=== PATIENT | female | born 1945 | race Caucasian/White ===

== ENCOUNTER 2023-11-21 20:58 | Emergency (ER) | payer OTHER, SELFPAY ==
[2023-11-21 23:08] VITALS: BP 123/85
--- NOTE | 2023-11-21 23:40 | ED.GENMED ---
History of Present Illness
General
Chief Complaint: Musculo-Skeletal Complaint
Source: patient
Exam Limitations: none
Time Seen by Provider: 11/21/23 23:05
Travel History
Have you had any contact with someone who has COVID-19?: No
Do you have any symptoms of coronavirus? Fever > 100 degrees, chills, cough, shortness of breath, sore throat, loss of taste or smell, muscle aches, or headache?: No
History of Present Illness
History of Present Illness:
This is a 78 year old female that comes in with c/o right hip/pelvic pain. States that she was on a ladder at work and the she was on the bottom step. States that she fell and landed on the right hip area. States that she has pain in the hip and
down into the groin. States that she did not hit her head or have any LOC. Deneis any fever, chills, chest pain, SOB, abd pain, nausea, vomiting, diarrhea, headache, dizziness, urinary burning.
Past History
Past History
ED Past Medical History: GERD, NIDDM and Other (Back pain, Hiatal hernia, Ulcers Anemia, )
ED Past Surgical History: Appendectomy and Orthopedic (Back surgery, Spinal stimulator)
Social History
Tobacco: Former smoker
Alcohol: None
Personal:
Living: with family
Employment: Employed
Review of Systems
Review of Systems
All Other Systems: ROS reviewed and negative except as documented in HPI and ROS
Constitutional: Reports no symptoms; Denies fever or chills
EENT: Reports no symptoms
Respiratory: Reports no symptoms; Denies cough or trouble breathing
Cardiac: Denies no symptoms or chest pain
ABD/GI: Reports no symptoms; Denies abdominal pain, nausea, vomiting or diarrhea
: Reports no symptoms; Denies dysuria, frequency or urgency
Musculoskeletal: Reports joint pain (Right hip and groin pain)
Skin: Reports no symptoms
Neurological: Reports no symptoms; Denies dizzy or headache
Psychiatric: Reports no symptoms
Phy Exam
General Physical Exam
General Presentation: well appearing
General age: appears stated age
General Skin: warm and dry
General Habitus: elderly
General Mental: alert
General Hydration: dry mucous membranes
ENT Exam
ENT Exam: TM's normal, pharynx normal and neck supple
Eye Exam
Eye Exam: EOMI
Cardiovascular Exam
Cardiovascular Exam: regular rate/rhythm, no edema and normal peripheral pulses
Pulmonary Exam
Pulmonary Exam: lungs clear, no respiratory distress, no rales, chest non tender, no crackles, no rhonchi, no wheezing and no cough
Gastrointestinal Exam
Gastrointestinal Exam: normal bowel sounds, non tender, soft, no organomegaly, no pulsatile mass and non distended
Musculoskeletal Exam
Musculoskeletal Exam: no edema and other (Right groin tenderness with palpation. Slight discomfort with inversion and evertion. )
Skin Exam
Skin Exam: normal color, warm/dry, no rash and no petechia
Psychiatric Exam
Psychiatric Exam: normal mood/affect
Course
Orders/Labs/Results
Orders:
Orders
11/21/23 21:49
Hip, Right 2-3 Views [CR Hip - RT w/wo Pel 2-3 Vw*] Urgent
Comment:
Reason For Exam: fall
Include a pelvis x-ray?: Yes
11/22/23 00:30
CT Pelvis W/o Iv Contrast Urgent
Reason For Exam: Fall, right groin pain
Vital Signs
Initial and Last Documented VS:
Initial Vital Signs
Temp Pulse Resp Pulse Ox
98.7 F 90 20 96
11/21/23 21:06 11/21/23 21:06 11/21/23 21:06 11/21/23 21:06
Last Documented Vital Signs
Temp Pulse Resp BP Pulse Ox
98.7 F 90 20 123/85 96
11/21/23 21:06 11/21/23 21:06 11/21/23 21:06 11/21/23 23:08 11/21/23 21:06
MDM/Problems Addressed
Differential Diagnosis Includes:
Pelvic fracture, Hip fracture, Contusion
MDM/Problems Addressed:
This is a 78 year old female that comes in with c/o right hip/pelvic pain. States that she fell of the bottom step on a ladder and landed on the right hip area. States that she has pain in the hip and down into the grown.
Will get CT of pelvis to r/o pelvic fractures. Hip X-ray appears negative.
Back into see patient. Explained that she has right sided pelvic fractures. Patient states that she would like to go home. Patient had taken Hydrocodone and 3 Ibuprofen before coming. States that she just feels sore in the groin area. Patient was
able to get OOB and walk to the bathroom with the use of a walker. Will discharge patient home with a prescription for Hydrocodone. Patient to follow up with the family doctor and the content production specialist. Patient to return with any concerns.
Chronic conditions affecting care:
NA
Acute Exacerbation and/or Progression of Chronic Illness:
NA
*Radiology
Radiology exam reviewed: radiology read reviewed (CT night hawk- Comminuted fracture of the right superior and inferior pubic rami. Prepubic soft tissue swelling and likely small blood products, extending near the space of Retzius. )
*Pulse Oximetry
Patient hypoxic: no
*EKG
Interpreted by ED Provider?: NA
Rate: EKG- N/A
*Power Machine Operator Interpretation
Rate: Power Machine Operator- N/A
*Critical Care Note
Total Time (30-74mins, 75-104mins- exclusive of procedures): Not Applicable
ED Attending Note
-
Portions of this chart may have been created with voice recognition software.� Occasional wrong word or��sound alike� substitutions may have occurred due to the inherent limitations of voice recognition software.
Discharge Plan
Departure
Patient Disposition: Home (Routine Discharge)
Date of Disposition: 11/22/23
Time of Disposition: 01:26
Patient with high blood pressure during this ER visit?: No
Condition: Good
Covid-19: Not Applicable
Discharge Problem:
Fracture of right pelvis
Instructions: Preventing falls in adults, Pelvic Fracture (DC)
Prescriptions:
New
hydrocodone bitartrate 10 mg capsule, oral only, ER 12hr
10 mg PO Q12H PRN (Reason: Pain) Qty: 20 0RF
No Action
ascorbic acid (vitamin C) [Vitamin C] 1,000 MG tablet,chewable
1,000 mg PO DAILY
magnesium oxide 250 MG tablet
250 mg PO DAILY
escitalopram oxalate 20 MG tablet
20 mg PO DAILY
calcium citrate-glut acid HCl 1 EACH tablet
1 ea PO TID
vitamin E (dl, acetate) 400 UNITS capsule
400 units PO DAILY
simvastatin 20 MG tablet
20 mg PO HS
acetaminophen [Tylenol Extra Strength] 500 MG tablet
1,000 mg PO BIDPRN PRN (Reason: mild pain)
ibuprofen 200 MG tablet
800 mg PO BIDPRN PRN (Reason: mild pain)
metformin 1,000 MG tablet
1,000 mg PO BID Qty: 0 0RF
Rx Instructions:
OK TO RESUME EVENING OF 01/30/21
Referrals:
Radha Benavides I., [Active] - Follow up in 2-3 days
Padmini Borjas MD [Family Provider] - Follow up in 2-3 days
Activity Restrictions/Additional Instructions:
As discussed, your X-ray was negative for any hip fracture. However, the CT shows that you have right sided pelvic fractures. This will take time to heal. Please use your Ibuprofen for pain. A prescription for your Hydrocodone has been sent to your
Pharmacy. Please use for more severe pain. Please eat before taking. This will make you tired. No alcohol or driving when taking. Follow up with the family doctor and the authorization specialist for further evaluation. IF YOU HAVE INCREASED OR
CHANGING PAIN, OR YOU HAVE ANY OTHER CONCERNS PLEASE RETURN TO THE EMERGENCY ROOM.
Interventions
Interventions:
*Risk Screen - Suicide Last Done: 11/21/23 21:06
*Neglect/Abuse Screening Last Done: 11/21/23 21:06
ED-Musculoskeletal Assessment Last Done: 11/21/23 23:52
ED- Neurological Assessment Last Done: 11/21/23 23:52
ED-Skin Assessment Last Done: 11/21/23 23:52
== END 2023-11-22 02:00 | disposition home or self-care (01) ==
LOC: EMR 20:58
PROVIDERS: EMERGENCY PHYSICIAN Student in an Organized Health Care Education/Training Program; FAMILY PHYSICIAN Internal Medicine
DX: S32.511A Fracture of superior rim of right pubis, initial encounter for closed fracture (principal); W11.XXXA Fall on and from ladder, initial encounter; Y99.0 Civilian activity done for income or pay; Z87.891 Personal history of nicotine dependence
CPT/HCPCS: 99284; 72192; 73502

== ENCOUNTER → 2025-03-24 11:24 | Outpatient (REF) | payer OTHER, SELFPAY | LOC: RAD 11:24 | PROVIDERS: ATTENDING PHYSICIAN Nurse Practitioner | DX: R05.9 Cough, unspecified (principal) | CPT/HCPCS: 71046 ==

== ENCOUNTER → 2025-03-25 09:59 | Outpatient (REF) | payer OTHER, SELFPAY | LOC: HWRAD 09:59 | PROVIDERS: ATTENDING PHYSICIAN Nurse Practitioner | DX: E04.1 Nontoxic single thyroid nodule (principal) | CPT/HCPCS: 76536 ==

== ENCOUNTER → 2025-04-01 10:11 | Outpatient (REF) | payer OTHER, SELFPAY | LOC: HWRAD 10:11 | PROVIDERS: ATTENDING PHYSICIAN Nurse Practitioner | DX: N83.201 Unspecified ovarian cyst, right side (principal); V89.2XXD Person injured in unspecified motor-vehicle accident, traffic, subsequent encounter | CPT/HCPCS: 76830; 76856 ==

== ENCOUNTER → 2025-04-10 13:50 | Outpatient (REF) | payer OTHER, SELFPAY | LOC: HWWDC 13:50 | PROVIDERS: ATTENDING PHYSICIAN Nurse Practitioner | DX: Z12.31 Encounter for screening mammogram for malignant neoplasm of breast (principal) | CPT/HCPCS: 77063; 77067 ==

== ENCOUNTER → 2025-04-23 13:35 | Outpatient (REF) | payer OTHER, SELFPAY ==
[2025-04-23 13:50] VITALS: BP 132/74; BP_SYST 93
== END ==
LOC: RADI 13:35
PROVIDERS: ATTENDING PHYSICIAN Nurse Practitioner
DX: E04.1 Nontoxic single thyroid nodule (principal)
CPT/HCPCS: 10005; 88173

== ENCOUNTER → 2025-05-28 09:35 | Outpatient (REF) | payer OTHER, SELFPAY | LOC: HWRAD 09:35 | PROVIDERS: ATTENDING PHYSICIAN Nurse Practitioner | DX: M81.0 Age-related osteoporosis without current pathological fracture (principal) | CPT/HCPCS: 77080 ==

== ENCOUNTER 2025-06-04 06:21 | Day surgery (SDC) | payer OTHER, SELFPAY ==
[2025-06-04 09:03] LABS: Glucose - Point of Care 105 mg/dl (70-99)
== END 2025-06-04 12:03 | disposition home or self-care (01) ==
LOC: GI 06:21
PROVIDERS: ATTENDING PHYSICIAN Surgery; FAMILY PHYSICIAN Nurse Practitioner
DX: R93.3 Abnormal findings on diagnostic imaging of other parts of digestive tract (principal); K62.5 Hemorrhage of anus and rectum; K64.8 Other hemorrhoids; A63.0 Anogenital (venereal) warts; D12.0 Benign neoplasm of cecum; K62.89 Other specified diseases of anus and rectum
CPT/HCPCS: 45378; 82962

== ENCOUNTER 2025-09-23 06:12 | Day surgery (SDC) | payer OTHER, SELFPAY ==
[2025-09-23 07:52] VITALS: BMI 26.5
[2025-09-23 07:53] VITALS: BMI 26.5
[2025-09-23 07:59] VITALS: BP 151/81
[2025-09-23 07:59] LABS: Glucose - Point of Care 108 mg/dl (70-99)
[2025-09-23 09:31] VITALS: BP 114/67
[2025-09-23 09:45] VITALS: BP 134/73
[2025-09-23 10:00] VITALS: BP 128/74
== END 2025-09-23 10:24 | disposition home or self-care (01) ==
LOC: GI 06:12
PROVIDERS: ATTENDING PHYSICIAN Internal Medicine Gastroenterology
DX: K64.0 First degree hemorrhoids (principal); K63.89 Other specified diseases of intestine; D12.0 Benign neoplasm of cecum
CPT/HCPCS: 45390; 45385; 45380; 82962; 88305